=== PATIENT | female | born 1950 | race Caucasian/White ===

== ENCOUNTER → 2017-09-28 | Outpatient (CLI) | payer OTHER ==
[2017-09-28 12:46] LABS: BE(vivo) 0.4 mmol/L (-2 to +3); HCO3 24.5 mmol/L (22.0-26.0); PCO2 37.7 mmHg (35.0-45.0); PO2 78.8 mmHg (80.0-100.0); pH 7.431 (7.360-7.450)
== END ==
LOC: RAD 11:55
PROVIDERS: Internal Medicine Pulmonary Disease
DX: J18.9 Pneumonia, unspecified organism (principal); M62.81 Muscle weakness (generalized); G20 Parkinson's disease; J96.11 Chronic respiratory failure with hypoxia; Z98.890 Other specified postprocedural states